=== PATIENT | female | born 1995 | race African-American/Black ===

== ENCOUNTER 2019-10-27 04:57 | Inpatient (IN) ==
[2019-10-27] MEDS ORDERED: ONDANSETRON 4 MG/2 ML VIAL IV PRN ×2 (05:41→13:37)
[2019-10-27] MEDS ORDERED: MEPERIDINE 50 MG/1 ML VIAL IV PRN (05:41)
[2019-10-27] MEDS ORDERED: BUTORPHANOL 2 MG/ML VIAL IV PRN (05:41)
[2019-10-27] MEDS ORDERED: NALOXONE 0.4 MG/ML VIAL IV PRN (05:44)
[2019-10-27] MEDS ORDERED: CITRIC ACID/SODIUM CITRATE 30 ML UDCUP PO ONE (05:44)
[2019-10-27] MEDS ORDERED: FAMOTIDINE 20 MG/2 ML VIAL IV ONE (05:44)
[2019-10-27] MEDS ORDERED: ePHEDrine 50 MG/ML VIAL IV PRN (05:44)
[2019-10-27] MEDS ORDERED: AMPICILLIN INJ 2,000 MG in SODIUM CHLORIDE 0.9% 100 ML IV ONE (05:53)
[2019-10-27] MEDS ORDERED: fentaNYL 2 MCG/ROPIV 0.2% EPID 100 ML EPIDURAL SCH (06:00)
[2019-10-27] MEDS: LACTATED RINGERS 1,000 ML IV PRN ×2 (06:46→09:08)
[2019-10-27 07:29] LABS: Albumin 2.5 G/DL (3.4-5.0); Bilirubin,Total 1.4 MG/DL (0.2-1.0); Total Protein 7.4 G/DL (6.4-8.3)
[2019-10-27 08:16] LABS: Basophils # 0.1 10*3/uL (0.0-0.2); Basophils % 0.4 % (0.0-0.8); Eosinophils % 0.2 % (0.00-10.9); Hematocrit 28.6 VOL% (35.7-47.0); Hemoglobin 7.6 GM/DL (12.0-16.0); Immature Granulocytes % 0.6 %; Immature Granulocytes Absolute 0.08 #; Lymphocytes # 3.2 10*3/uL (1.4-4.0); Lymphocytes % 23.9 % (21.3-54.2); Mean Corpuscular HGB Conc 26.6 GM/DL (32-36); Monocytes % 6.4 % (1.7-12.7); NRBC # 0.07 10*3/uL; Neutrophils % 68.5 % (38.7-73.9); Platelet Count 268 T/CUMM (130-400); Red Blood Count 4.69 MC/CUMM (3.8-5.5); Red Cell Distribution Width 21.2 % (9.3-17.3); White Blood Count 13.4 T/CUMM (4-12)
[2019-10-27 08:50] LABS: Anisocytosis 2+; Ovalocytes Few; Platelet Estimate Normal; Poikilocytosis Slight
[2019-10-27 08:51] LABS: Hypochromasia Slight; Tear Drop Cells Few
[2019-10-27 08:58] LABS: Bilirubin,Urine Negative (Negative); Blood, Urine Negative (Negative); Glucose,Urine (UA) Negative (Negative); Ketones,Urine Negative (Negative); Nitrite,Urine Negative (Negative); Protein,Urine Negative; RBC,Urine <1 /HPF (0-4); Squamous Epithelial Cell,Urine Occasional /HPF (0-10); Urine Appearance CLEAR (Clear); Urine Color Colorless (Yellow); Urine Specific Gravity 1.001 (1.001-1.035); Urine Urobilinogen < 2.0 EU/DL (0.2-1.0); WBC,Urine <1 /HPF (0-6)
[2019-10-27] MEDS ORDERED: OXYTOCIN/LR 20 UNIT/1,000 ML BAG IV SCH (09:30)
[2019-10-27] MEDS ORDERED: AMPICILLIN INJ 1,000 MG in SODIUM CHLORIDE 0.9% 100 ML IV SCH (10:00)
[2019-10-27] MEDS ORDERED: LACTATED RINGERS 1,000 ML IV SCH ×2 (10:00→14:00)
[2019-10-27 11:40] LABS: Cord Venous Blood HCO3 22.3 MMOL/L; Cord Venous Blood PCO2 40.7 MMHG; Cord Venous Blood PO2 33.8
[2019-10-27 11:46] LABS: Cord Arterial Blood HCO3 19.9 MMOL/L
[2019-10-27] MEDS ORDERED: MAGNESIUM HYDROXIDE SUSP 30 ML UDCUP PO PRN (13:37)
[2019-10-27] MEDS ORDERED: BISACODYL 10 MG SUPP RECTAL PRN (13:37)
[2019-10-27] MEDS ORDERED: ACETAMINOPHEN 500 MG TABLET PO PRN (15:00)
[2019-10-27] MEDS: IBUPROFEN 800 MG TABLET PO PRN (16:20)
[2019-10-27] MEDS ORDERED: IRON (CARBONYL)/VIT C/B12/FA TABLET PO SCH (17:00)
[2019-10-27] MEDS: POTASSIUM CHLORIDE 20 MEQ TABLET PO SCH (17:50)
[2019-10-27] MEDS: DOCUSATE SODIUM 100 MG CAPSULE PO SCH (21:15)
[2019-10-28] MEDS: IBUPROFEN 800 MG TABLET PO PRN ×3 (00:10→16:43)
[2019-10-28 05:26] LABS: Basophils % 0.3 % (0.0-0.8); Eosinophils # 0.1 10*3/uL (0.0-0.87); Eosinophils % 0.5 % (0.00-10.9); Hematocrit 23.1 VOL% (35.7-47.0); Immature Granulocytes % 0.4 %; Immature Granulocytes Absolute 0.04 #; Lymphocytes # 2.4 10*3/uL (1.4-4.0); Lymphocytes % 26.1 % (21.3-54.2); Mean Corpuscular HGB Conc 27.7 GM/DL (32-36); Mean Corpuscular Volume 59.8 FL (87-102); Monocytes % 8.9 % (1.7-12.7); NRBC # 0.04 10*3/uL; Neutrophils % 63.8 % (38.7-73.9); Platelet Count 197 T/CUMM (130-400); Red Blood Count 3.86 MC/CUMM (3.8-5.5); Red Cell Distribution Width 20.7 % (9.3-17.3); White Blood Count 9.2 T/CUMM (4-12)
[2019-10-28 05:51] LABS: Hemoglobin 6.4 GM/DL (12.0-16.0)
[2019-10-28] MEDS ORDERED: SODIUM CHLORIDE 0.9% 1,000 ML IV PRN ×3 (05:58→06:55)
[2019-10-28] MEDS: DOCUSATE SODIUM 100 MG CAPSULE PO SCH ×2 (08:29→21:08)
[2019-10-28] MEDS: MULTIVITAMIN (PRENATAL) TABLET PO SCH (08:29)
[2019-10-28] MEDS: POTASSIUM CHLORIDE 20 MEQ TABLET PO SCH (08:29)
[2019-10-28] MEDS ORDERED: IRON (CARBONYL)/VIT C/B12/FA TABLET PO SCH (17:00)
[2019-10-28 18:04] LABS: Hematocrit 31.5 VOL% (35.7-47.0); Hemoglobin 9.1 GM/DL (12.0-16.0)
[2019-10-29] MEDS: IBUPROFEN 800 MG TABLET PO PRN ×2 (01:31→07:57)
[2019-10-29] MEDS: POTASSIUM CHLORIDE 20 MEQ TABLET PO SCH (07:57)
[2019-10-29] MEDS: DOCUSATE SODIUM 100 MG CAPSULE PO SCH (07:57)
[2019-10-29] MEDS: MULTIVITAMIN (PRENATAL) TABLET PO SCH (07:57)
[2019-10-29 09:49] VITALS: BP 112/68
[2019-10-29] MEDS ORDERED: DIPH/TET/ACEL PERT BOOSTER VACCINE 0.5 ML VIAL IM ONE (11:10)
== END 2019-10-29 12:50 | disposition home or self-care (01) | DRG 560 ==
LOC: N.LDOUT 04:57 → N.LD 04:59 → N.OB 14:52
PROVIDERS: ADMIT Obstetrics & Gynecology; ATTEND Obstetrics & Gynecology